=== PATIENT | male | born 1990 | race Caucasian/White ===

== ENCOUNTER 2021-09-28 17:29 | Emergency (ER) | payer SELFPAY ==
[2021-09-28 17:40] VITALS: BP 151/102; PULSE 68; RESP 16; TEMP 36.4; O2SAT 98; BMI 21.7
--- NOTE | 2021-09-28 17:53 | CTR_ITS ---
PROCEDURE INFORMATION: Exam: CT Head Without Contrast Exam date and time: 09/28/2021 6:49 PM Age: 30 years old Clinical indication: Altered mental status/memory loss; Confusion or disorientation; Additional info: Neuro complaint TECHNIQUE: Imaging protocol: Computed tomography of the head without contrast. Radiation optimization: All CT scans at this facility use at least one of these dose optimization techniques: automated exposure control; mA and/or kV adjustment per patient size (includes targeted exams where dose is matched to clinical indication); or iterative reconstruction. COMPARISON: No relevant prior studies available. RADIATION DOSE METRICS: Total DLP (mGy-cm): 1115.38 FINDINGS: Brain: Normal. No hemorrhage. Unremarkable white matter. No mass effect. Cerebral ventricles: No ventriculomegaly. Paranasal sinuses: Visualized sinuses are unremarkable. No fluid levels. Mastoid air cells: Visualized mastoid air cells are well aerated. Bones/joints: Unremarkable. No acute fracture. Soft tissues: Unremarkable. CT/CT head wo con* [id number] IMPRESSION: No acute intracranial abnormality.
[2021-09-28 18:23] LABS: Urine Appearance Clear (CLEAR); Urine Color Colorless (Yellow)
[2021-09-28 18:24] LABS: Bilirubin Urine Neg (Negative); Blood Urine Neg (Negative); Glucose Urine UA Norm (Normal); Ketones Urine Negative (Negative); Leukocyte Esterase Urine Negative (Negative); Nitrate Urine Negative (Negative); Protein Urine Neg (Negative); Urobilinogen Urine Norm (Negative); pH Urine 7 (5-7)
[2021-09-28 18:28] LABS: Add Urine Culture? No; Bacteria Urine TRACE /hpf; WBC Urine RARE /hpf (0-5)
--- NOTE | 2021-09-28 19:12 | W.ED.GENADLT ---
HPI - General Adult General: Chief complaint: General Medical Stated complaint: Stroke like symptoms Time Seen by Provider: 09/28/21 19:00 Source: patient Mode of arrival: ambulatory Limitations: no limitations History of Present Illness: 30-year-old male states that he get very good rest last night was up most nights states that he works from home and was sitting the computer during a meeting and states that he had an episode where he passed out. He states that he does not remember anything that really happened and felt like he is having purulent dreams and this went on for roughly 15 to 30 minutes he states he came to and was not sure really what it happened. He states he is felt a little funny . He denies any headache denies any fever denies any head injuries he states that he does want to be checked out. Associated symptoms: Deny chest pain, dyspnea, headache(s), nausea, rash or vomiting Review of Systems Const: Denies: fever(s), chills, body aches or change in appetite Eyes: Denies: blurry vision or eye discomfort ENMT: Denies: throat pain or dental pain Card: Denies: chest pain Resp: Denies: dyspnea GI: Denies: abdominal pain, nausea, vomiting or diarrhea : Denies: dysuria Musc: Denies: neck pain or back pain Skin/Breast: Denies: rash Neuro: Denies: headache(s) Psych: Denies: depression Lionel/Lymph: Denies: easy bruising All/Imm: Denies: urticaria PFSH ED PFSH: Medical History (Updated 09/28/21 @ 19:27 by Jose Miguel Michael MD) No pertinent past medical history Social History (Updated 09/28/21 @ 19:13 by Jose Miguel Michael MD) Substance/Drug Use: never Physical Exam Const: COMMON NORMALS: no acute distress, patient oriented x3 and healthy appearing HENMT: COMMON NORMALS: normocephalic and atraumatic HEAD & SCALP: normocephalic and atraumatic Eye: COMMON NORMALS: Equal, round and reactive pupils present and EOMs intact bilaterally PUPIL: Yes Equal, round and reactive pupils present Neck/C-Spine: COMMON NORMALS: full ROM and supple Chest: COMMONS NORMALS: normal inspection of the chest and normal palpation of entire chest wall Resp: COMMON NORMALS: normal respiratory effort, No retractions, No use of accessory muscles and clear to auscultation bilaterally AUSCULTATION: clear to auscultation bilaterally Cardio: COMMON NORMALS: regular rate, regular rhythm and No murmurs present (Cardio) RATE: regular rate RHYTHM: regular rhythm GI: COMMON NORMALS: Normal to inspection, nondistended, normoactive bowel sounds present, Soft to palpation, non-tender and no masses PALPATION: Yes Soft to palpation Extremity: COMMON NORMALS: normal to inspection and full ROM Neuro: COMMON NORMALS: patient oriented x3, moves all extremities and no focal motor deficits Psych: COMMON NORMALS: mental status grossly normal, Normal thought process present and cooperative THOUGHT PROCESS: Normal thought process present Skin: COMMON NORMALS: no rashes or lesions noted and no wounds GENERAL SKIN EXAM: no rashes or lesions noted Course Vital Signs: Vital signs: Vital Signs Temperature 97.7 F 09/28/21 19:21 Pulse Rate 64 09/28/21 19:21 Respiratory Rate 16 09/28/21 19:21 Blood Pressure 149/80 09/28/21 19:21 Pulse Oximetry 100 09/28/21 19:21 [facility] - General Adult Medical Decision Making Patient presents here with. We had a loss of consciousness he is well-appearing here his head CT is normal I believe he stable for discharge he is to follow-up with PCP and return if worsening he understands agrees to plan. Lab Data Radiology Impressions Head CT 09/28/21 17:53 IMPRESSION: No acute intracranial abnormality. Laboratory Results Urine Color Colorless (Yellow) 09/28/21 17:50 Urine Appearance Clear (CLEAR) 09/28/21 17:50 Urine pH 7 (5-7) 09/28/21 17:50 Ur Specific [place] 1.010 (1.005-1.030) 09/28/21 17:50 Urine Protein Neg (Negative) 09/28/21 17:50 Urine Glucose (UA) Norm (Normal) 09/28/21 17:50 Urine Ketones Negative (Negative) 09/28/21 17:50 Urine Blood Neg (Negative) 09/28/21 17:50 Urine Nitrate Negative (Negative) 09/28/21 17:50 Urine Bilirubin Neg (Negative) 09/28/21 17:50 Urine Urobilinogen Norm mg/dL (Negative) 09/28/21 17:50 Ur Leukocyte Esterase Negative (Negative) 09/28/21 17:50 Urine RBC None /hpf (0-2) 09/28/21 17:50 Urine WBC Rare /hpf (0-5) 09/28/21 17:50 Ur Squamous Epith Cells None /hpf (0-5) 09/28/21 17:50 Amorphous Sediment Not Reportable 09/28/21 17:50 Urine Bacteria Trace /hpf (NONE) 09/28/21 17:50 Discharge Plan Discharge Patient Disposition: Home Clinical Impression: Loss of consciousness Discharge Orders: Discharge ED (Routine); Ordered 09/28/21 Ordered By: Jose Miguel Michael Discharge Diet: Advance as tolerated Discharge Activity: Resume usual activity Patient Instructions: Altered Mental Status (ED) Coding Level of Care Code ED Driveway Attendant for Jhonny Fwramsey Exam Comprehensive
[2021-09-28 19:21] VITALS: BP 149/80; PULSE 64; RESP 16; TEMP 36.5; O2SAT 100
[2021-09-28 19:36] VITALS: BP 149/80; PULSE 67; RESP 18; O2SAT 100
== END 2021-09-28 19:39 | disposition home or self-care (01) ==
PROVIDERS: Family Medicine; Emergency Provider Emergency Medicine
DX: R55 Syncope and collapse (principal)
CPT/HCPCS: 70450; 81001; 99284

== ENCOUNTER → 2022-04-21 10:48 | Outpatient (BNVA) | payer OTHER, SELFPAY | PROVIDERS: PCP Family Medicine; Visit Provider Family Medicine | DX: R41.82 Altered mental status, unspecified (principal); G43.909 Migraine, unspecified, not intractable, without status migrainosus; F41.9 Anxiety disorder, unspecified | CPT/HCPCS: 80053; 84439; 84443; 85025 ==

== ENCOUNTER → 2022-08-24 10:08 | Outpatient (BNVA) | payer OTHER, SELFPAY | PROVIDERS: PCP Family Medicine; Visit Provider Anesthesiology Pain Medicine | DX: M47.812 Spondylosis without myelopathy or radiculopathy, cervical region (principal) | CPT/HCPCS: 72050 ==

== ENCOUNTER → 2022-11-15 10:02 | Outpatient (BNVA) | payer OTHER, SELFPAY | PROVIDERS: PCP Family Medicine; Visit Provider Family Medicine | DX: R53.83 Other fatigue (principal) | CPT/HCPCS: 85025 ==

== ENCOUNTER → 2022-11-17 10:59 | Outpatient (BNVA) | payer OTHER, SELFPAY | PROVIDERS: PCP Family Medicine | DX: R53.83 Other fatigue (principal) | CPT/HCPCS: 82728; 83550; 84403; 85025 ==

== ENCOUNTER 2022-12-07 09:00 | Outpatient (CLI) | payer OTHER, SELFPAY | END 2022-12-07 09:01 | disposition home or self-care (01) | LOC: SLEEP 12-08 10:05 | PROVIDERS: PCP Family Medicine; Visit Provider Family Medicine | DX: G47.30 Sleep apnea, unspecified (principal); R06.83 Snoring | CPT/HCPCS: G0399 ==